=== PATIENT | female | born 1980 | race Caucasian/White ===

== ENCOUNTER 2016-08-05 08:42 | Emergency (ER) | payer BC ==
[~2016-08-05] VITALS: Ht 157.5 cm; Wt 64.0 kg
[~2016-08-05 08:42] MED LIST: DULO20 PO
[2016-08-05 08:46] VITALS: BP 107/77; PULSE 92; RESP 16; TEMP 98.1; O2SAT 98
[2016-08-05 08:59] LABS: BLOOD, URINE NEG (NEG); GLUCOSE,URINE NEG (NEG); KETONE, URINE NEG (NEG); NITRITE,URINE NEG (NEG)
[2016-08-05 09:08] LABS: COMMENT (UR) CULT NOT INDICATED; CULTURE IF INDICATED CULT NOT INDICATED; METHOD OF COLLECTION CLEAN CATCH; RBC, URINE 0-3 /hpf (0-3); SQUAMOUS EPITHELIAL CELL URINE > 8 /hpf (0-5); URINE COLOR YELLOW (YELLW/STRAW)
[2016-08-05] MEDS ORDERED: KETOROLAC TROMETHAMINE 30 MG/ML (IVP) VIAL IV PUSH ONE (09:30)
[2016-08-05] MEDS ORDERED: ONDANSETRON HCL 4 MG/2 ML VIAL IV PUSH ONE (09:30)
[2016-08-05] MEDS ORDERED: SODIUM CHLORIDE 0.9% FLUSH 5 ML FLUSH IVF PRN (09:30)
[2016-08-05 09:36] VITALS: O2SAT 98
[2016-08-05 09:52] LABS: AUTOMATED NEUTROPHIL # 4.8 TH/MM3 (1.8-7.7); BASOPHIL # 0.1 TH/MM3 (0-0.2); BASOPHIL % 1.2 % (0.0-2.0); EOSINOPHIL # 0.2 TH/MM3 (0-0.4); EOSINOPHIL % 2.5 % (0.0-4.0); HEMATOCRIT 43.4 % (35.0-46.0); HEMO FLAGS DIFF FINAL; LYMPH % 31.5 % (9.0-44.0); LYMPHOCYTE # 2.5 TH/MM3 (1.0-4.8); MEAN CELL VOLUME 94.7 FL (80.0-100.0); MEAN CORPUSCULAR HEMOGLOBIN 31.4 PG (27.0-34.0); MEAN CORPUSCULAR HGB CONC 33.1 % (32.0-36.0); MONO % 4.3 % (0.0-8.0); NEUT % 60.5 % (16.0-70.0); PLATELET COUNT 223 TH/MM3 (150-450); RED BLOOD COUNT 4.58 MIL/MM3 (4.00-5.30); RED CELL DISTRIBUTION WIDTH 13.7 % (11.6-17.2); WHITE BLOOD COUNT 7.9 TH/MM3 (4.0-11.0)
[2016-08-05] MEDS ORDERED: IOHEXOL 350 MG/ML 10 ML VIAL (for RAD DIAG) IV ONE (09:57)
[2016-08-05 09:58] LABS: BICARBONATE 27.5 MEQ/L (21.0-32.0)
[2016-08-05 10:01] LABS: APTT (PATIENT) 29.3 SEC (24.3-30.1); PROTHROMBIN TIME - PATIENT 10.6 SEC (9.8-11.6)
--- NOTE | 2016-08-05 10:17 | PD ---
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 Pt states it has been constant, from RLQ to right groin region. Denies any fever, chest pain, sob, n/v, urinary complaints, vaginal bleeding or discharge. Pt states she has been having this pain for 3 months intermittently and her PMD thinks it may be scar tissue from surgery. PFSH Past Medical History Arthritis: No Asthma: Yes Blood Disorders: No Anxiety: No Depression: Yes Cancer: No Cardiovascular Problems: No Diabetes: No Diminished Hearing: No Endocrine: No Gastrointestinal Disorders: No Genitourinary: Yes (PYELONEPHRITIS) Headaches: Yes Immune Disorder: No Musculoskeletal: Yes Psychiatric: No Reproductive: No Respiratory: Yes Migraines: Yes Thyroid Disease: No Tetanus Vaccination: Unknown Influenza Vaccination: No ?: Not LMP: NOVASURE Tubal Ligation: Yes Past Surgical History Other Surgery: No Social History Alcohol Use: Yes ("OCCASIONALLY") Tobacco Use: Yes (1/2 ppd) Substance Use: No Allergies-Medications (Allergen,Severity, Reaction): Coded Allergies: Penicillin (Verified Allergy, Unknown, NOT SURE, 08/05/16) Reported Meds & Prescriptions Reported Meds & Active Scripts Active No Active Prescriptions or Reported Medications Review of Systems Except as stated in HPI: all other systems reviewed are Neg Physical Exam Narrative GENERAL: 36yo F in mild distress. SKIN: Warm and dry. HEAD: Atraumatic. Normocephalic. CARDIOVASCULAR: Regular rate and rhythm. No murmur appreciated. RESPIRATORY: No accessory muscle use. Clear to auscultation. Breath sounds equal bilaterally. GASTROINTESTINAL: Abdomen soft,mild RLQ ttp. No rebound tenderness or guarding. PELVIC: White physiologic discharge. No CMT or adnexal tenderness bilaterally. MUSCULOSKELETAL: No obvious deformities. No clubbing. No cyanosis. No edema. NEUROLOGICAL: Awake and alert. No obvious cranial nerve deficits. Motor grossly within normal limits. Normal speech. PSYCHIATRIC: Appropriate mood and affect; insight and judgment normal.38 Data Data Last Documented VS Vital Signs Date Time Temp Pulse Resp B/P Pulse Ox O2 Delivery O2 Flow Rate FiO2 08/05/16 09:36 98 08/05/16 09:18 16 08/05/16 08:46 98.1 92 107/77 Orders Urinalysis - C+S If Indicated (08/05/16 08:50) Basic Metabolic Panel (Bmp) (08/05/16 09:20) Complete Blood Count With Diff (08/05/16 09:20) Lipase (08/05/16 09:20) Prothrombin Time / Inr (Pt) (08/05/16 09:20) Act Partial Throm Time (Ptt) (08/05/16 09:20) Ct Abd/Pel W Iv Contrast(Rout) (08/05/16 09:20) Iv Access Insert/Monitor (08/05/16 09:20) Ecg Monitoring (08/05/16 09:20) Oximetry (08/05/16 09:20) Sodium Chloride 0.9% Flush (Ns Flush) (08/05/16 09:30) Ketorolac Inj (Toradol Inj) (08/05/16 09:30) Ondansetron Inj (Zofran Inj) (08/05/16 09:30) Gc And Chlamydia Pcr (08/05/16 09:27) Wet Prep Profile (08/05/16 09:27) Iohexol 350 Inj (Omnipaque 350 Inj) (08/05/16 09:57) Labs Laboratory Tests Test 08/05/16 08/05/16 08/05/16 08:50 09:15 09:36 Urine Collection Type CLEAN CATCH Urine Color YELLOW Urine Turbidity CLEAR Urine pH 6.0 Urine Specific [place] 1.007 Urine Protein NEG mg/dL Urine Glucose (UA) NEG mg/dL Urine Ketones NEG mg/dL Urine Occult Blood NEG Urine Nitrite NEG Urine Bilirubin NEG Urine Leukocyte Esterase NEG Urine RBC 0-3 /hpf Urine Squamous Epithelial > 8 /hpf Cells Microscopic Urinalysis Comment CULT NOT INDICATED Urine Collection Time 08:50 Clue Cells (Wet Prep) NONE SEEN Vaginal Trichomonas (Wet Prep) NONE SEEN Vaginal Yeast (Wet Prep) NONE SEEN White Blood Count 7.9 TH/MM3 Red Blood Count 4.58 MIL/MM3 Hemoglobin 14.4 GM/DL Hematocrit 43.4 % Mean Corpuscular Volume 94.7 FL Mean Corpuscular Hemoglobin 31.4 PG Mean Corpuscular Hemoglobin 33.1 % Concent Red Cell Distribution Width 13.7 % Platelet Count 223 TH/MM3 Mean Platelet Volume 9.0 FL Neutrophils (%) (Auto) 60.5 % Lymphocytes (%) (Auto) 31.5 % Monocytes (%) (Auto) 4.3 % Eosinophils (%) (Auto) 2.5 % Basophils (%) (Auto) 1.2 % Neutrophils # (Auto) 4.8 TH/MM3 Lymphocytes # (Auto) 2.5 TH/MM3 Monocytes # (Auto) 0.3 TH/MM3 Eosinophils # (Auto) 0.2 TH/MM3 Basophils # (Auto) 0.1 TH/MM3 CBC Comment DIFF FINAL Differential Comment Prothrombin Time 10.6 SEC Prothromb Time International 1.0 RATIO Ratio Activated Partial 29.3 SEC Thromboplast Time Sodium Level 142 MEQ/L Potassium Level 4.0 MEQ/L Chloride Level 107 MEQ/L Carbon Dioxide Level 27.5 MEQ/L Anion Gap 8 MEQ/L Blood Urea Nitrogen 12 MG/DL Creatinine 0.70 MG/DL Estimat Glomerular Filtration 94 ML/MIN Rate Random Glucose 102 MG/DL Calcium Level 8.9 MG/DL Lipase 106 U/L [facility] Medical Decision Making Medical Screen Exam Complete: Yes Emergency Medical Condition: Yes Interpretation(s) Laboratory Tests Test 08/05/16 08/05/16 08/05/16 08:50 09:15 09:36 Urine Collection Type CLEAN CATCH Urine Color YELLOW (YELLW/STRAW) Urine Turbidity CLEAR (CLEAR) Urine pH 6.0 (5.0-8.5) Urine Specific [place] 1.007 (1.002-1.035) Urine Protein NEG mg/dL (NEG-TRACE) Urine Glucose (UA) NEG mg/dL (NEG) Urine Ketones NEG mg/dL (NEG) Urine Occult Blood NEG (NEG) Urine Nitrite NEG (NEG) Urine Bilirubin NEG (NEG) Urine Leukocyte Esterase NEG (NEG) Urine RBC 0-3 /hpf (0-3) Urine Squamous Epithelial > 8 /hpf (0-5) Cells Microscopic Urinalysis Comment CULT NOT INDICATED Urine Collection Time 08:50 Clue Cells (Wet Prep) NONE SEEN (NONE) Vaginal Trichomonas (Wet Prep) NONE SEEN (NONE) Vaginal Yeast (Wet Prep) NONE SEEN (NONE) White Blood Count 7.9 TH/MM3 (4.0-11.0) Red Blood Count 4.58 MIL/MM3 (4.00-5.30) Hemoglobin 14.4 GM/DL (11.6-15.3) Hematocrit 43.4 % (35.0-46.0) Mean Corpuscular Volume 94.7 FL (80.0-100.0) Mean Corpuscular Hemoglobin 31.4 PG (27.0-34.0) Mean Corpuscular Hemoglobin 33.1 % Concent (32.0-36.0) Red Cell Distribution Width 13.7 % (11.6-17.2) Platelet Count 223 TH/MM3 (150-450) Mean Platelet Volume 9.0 FL (7.0-11.0) Neutrophils (%) (Auto) 60.5 % (16.0-70.0) Lymphocytes (%) (Auto) 31.5 % (9.0-44.0) Monocytes (%) (Auto) 4.3 % (0.0-8.0) Eosinophils (%) (Auto) 2.5 % (0.0-4.0) Basophils (%) (Auto) 1.2 % (0.0-2.0) Neutrophils # (Auto) 4.8 TH/MM3 (1.8-7.7) Lymphocytes # (Auto) 2.5 TH/MM3 (1.0-4.8) Monocytes # (Auto) 0.3 TH/MM3 (0-0.9) Eosinophils # (Auto) 0.2 TH/MM3 (0-0.4) Basophils # (Auto) 0.1 TH/MM3 (0-0.2) CBC Comment DIFF FINAL Differential Comment Prothrombin Time 10.6 SEC (9.8-11.6) Prothromb Time International 1.0 RATIO Ratio Activated Partial 29.3 SEC Thromboplast Time (24.3-30.1) Sodium Level 142 MEQ/L (136-145) Potassium Level 4.0 MEQ/L (3.5-5.1) Chloride Level 107 MEQ/L (98-107) Carbon Dioxide Level 27.5 MEQ/L (21.0-32.0) Anion Gap 8 MEQ/L (5-15) Blood Urea Nitrogen 12 MG/DL (7-18) Creatinine 0.70 MG/DL (0.50-1.00) Estimat Glomerular Filtration 94 ML/MIN (>89) Rate Random Glucose 102 MG/DL (74-106) Calcium Level 8.9 MG/DL (8.5-10.1) Lipase 106 U/L (73-393) Differential Diagnosis Appendicitis vs. ovarian cyst vs. UTI vs. nephrolithiasis Narrative Course 36yo well appearing female with 3 sides of right sided pelvic/lower abd pain. Labs reviewed, no leukocytosis. BMP unremarkable. Lipase normal. UA negative. Wet prep negative. Pt given toradol with complete resolution of pain. CTa/p showed no appendicitis. There are cystic areas in both adnexal region as well as uterus. No free fluid. Pt is not in any pain and wants to go home. Informed pt of test result and she states she will follow up with her PMD. Will also give information for out [employer] in case she wants to follow up with them. Return precautions given. Diagnosis Primary Impression: Pelvic pain Patient Instructions: General Instructions Departure Forms: Tests/Procedures Additional Instructions: Please follow up with your PMD or [employer] in 1-2 days. Return to the ED if symptoms return or worsen. Med/Other Pt SpecificInfo: Prescription(s) given Scripts Ibuprofen 600 Mg Haz687 Mg PO Q8HR PRN (PAIN) #20 TAB Ref 0 Prov:Marielle Chatterjee DO 08/05/16 Disposition: 01 DISCHARGE HOME Condition: Stable Marielle Chattejree DO Aug 05, 2016 10:16
--- NOTE | 2016-08-05 10:39 | RADHPO ---
EXAM DATE/TIME: 08/05/2016 09:48 [place] COMPARISON: No previous studies available for comparison. INDICATIONS: Right lower quadrant pain. Right inguinal pain. IV CONTRAST: 85 cc Omnipaque 350 (iohexol) IV ORAL CONTRAST: No oral contrast ingested. RADIATION DOSE: 6.57 CTDIvol (mGy) MEDICAL HISTORY: Asthma. SURGICAL HISTORY: Tubal ligation. ENCOUNTER: Initial ACUITY: 3 days PAIN SCALE: 6/10 LOCATION: Right lower quadrant TECHNIQUE: Volumetric scanning of the abdomen and pelvis was performed. Using automated exposure control and ad justment of the mA and/or kV according to patient size, radiation dose was kept as low as reasonably achievable to obtain optimal diagnostic quality images. FINDINGS: Lung bases are clear. Liver, spleen, pancreas, adrenals and kidneys are unremarkable. There is no ascites or adenopathy. Cystic areas are seen in both adnexal regions as well as the uterus. There is no free fluid. I do not see an appendicitis. CONCLUSION: Abnormal uterus an adnexa probably the source of pelvic pain. I do not see evidence for an appendici tis. Taurus Taylor MD FACR on August 05, 2016 at 10:13 Board Certified Radiologist. This report was verified electronically.
[2016-08-05] MEDS ORDERED: IBUP-232 PO (11:16)
[2016-08-05 11:23] VITALS: BP 97/66
[2016-08-05 11:24] VITALS: RESP 18
[2016-08-05 15:16] LABS: CHLAMYDIA PCR NOT DETECTED (NOT DETECT); NEISSERIA PCR NOT DETECTED (NOT DETECT)
== END 2016-08-05 11:24 | disposition home or self-care (01) ==
LOC: PHED 08:42
DX: R10.2 Pelvic and perineal pain (principal); J45.909 Unspecified asthma, uncomplicated; F17.210 Nicotine dependence, cigarettes, uncomplicated
CPT/HCPCS: 74177; 80048; 81001; 83690; 85025; 85610; 85730; 87210; 87491; 87591; 96374; 96375; 99284; J1885; J2405; Q9967

== ENCOUNTER 2016-08-12 23:35 | Emergency (ER) | payer BC ==
[~2016-08-12] VITALS: Ht 157.5 cm; Wt 66.0 kg
[~2016-08-12 23:35] MED LIST changes: -DULO20 PO; +IBUP-232 PO
[2016-08-12 23:51] VITALS: BP 106/76; PULSE 107; RESP 16; TEMP 98.7; O2SAT 100
[2016-08-13 00:03] VITALS: BP 106/76; PULSE 96; RESP 18; TEMP 98.7; O2SAT 100
[2016-08-13 01:15] VITALS: BP 112/72; PULSE 74; RESP 18; O2SAT 99
== END 2016-08-13 01:24 | disposition left against medical advice (07) ==
LOC: PHED 23:35
DX: R10.30 Lower abdominal pain, unspecified (principal)
CPT/HCPCS: 99281

== ENCOUNTER → 2017-07-24 | Outpatient (CLI) | payer BC ==
[~2017-07-24] MED LIST changes: +ALPR.5 PO; +AMIT10TA6 PO
[2017-07-24 12:10] LABS: HEMATOCRIT 44.7 % (35.0-46.0); HEMOGLOBIN 14.7 GM/DL (11.6-15.3); MEAN CORPUSCULAR HGB CONC 32.9 % (32.0-36.0); MEAN PLATELET VOLUME 8.5 FL (7.0-11.0); PLATELET COUNT 243 TH/MM3 (150-450); RED BLOOD COUNT 4.76 MIL/MM3 (4.00-5.30); RED CELL DISTRIBUTION WIDTH 12.9 % (11.6-17.2); WHITE BLOOD COUNT 6.7 TH/MM3 (4.0-11.0)
[2017-07-24 12:35] LABS: BILIRUBIN, URINE NEG (NEG); BLOOD, URINE NEG (NEG); GLUCOSE,URINE NEG (NEG); KETONE, URINE NEG (NEG); NITRITE,URINE NEG (NEG); URINE LEUKOCYTE ESTERASE NEG (NEG)
[2017-07-24 12:41] LABS: SQUAMOUS EPITHELIAL CELL URINE 0-2 /hpf (0-5); URINE COLOR STRAW (YELLW/STRAW)
== END ==
LOC: PHPRE 11:18
PROVIDERS: ATTEND Obstetrics & Gynecology
DX: Z01.812 Encounter for preprocedural laboratory examination (principal); R10.2 Pelvic and perineal pain; N94.19 Other specified dyspareunia; N73.8 Other specified female pelvic inflammatory diseases
CPT/HCPCS: 36415; 81001; 85027; 86850; 86900; 86901; 86920

== ENCOUNTER → 2017-07-26 | Day surgery (SDC) | payer BC ==
[~2017-07-26] VITALS: Ht 157.5 cm; Wt 65.5 kg
[~2017-07-26] MED LIST changes: +ACETAMINOPHEN 1000 MG/100 ML 100 ML IV ONE; +CHLORHEXIDINE GLUCONATE 2 % 1 PACK (2 CLOTHS) TOPICAL PRN; +CLINDAMYCIN 600 MG/DEX PREMIX 50 ML ONE; +CLINDAMYCIN 600 MG/NS PREMIX 50 ML IV PRN; +ESTROGENS CONJUGATED VAG CREA 15 APPL/30 GM TUBE ONE; +FAMOTIDINE 20 MG/2 ML VIAL ONE; +GENTAMICIN INJ 100 MG in SODIUM CHLORIDE 0.9% INJ 100 ML IV PRN; -IBUP-232 PO; +KETOROLAC TROMETHAMINE 30 MG/ML (IVP) VIAL ONE; +LACTATED RINGER'S 1000 ML INJ 1,000 ML IV ONE; +LACTATED RINGER'S 1000 ML IV PRN; +MEPERIDINE HCL 25 MG/ML VIAL ONE; +METOPROLOL TARTRATE 25 MG TAB PO PRN; +MIDAZOLAM HCL 2 MG/2 ML VIAL ONE; +MORPHINE SULFATE 2 MG/ML INJ ONE; +MORPHINE SULFATE 8 MG/ML INJ ONE; +POVIDONE IODINE 5% (ANTISEPSIS KIT) 4 APPLICATIONS EACH NARE PRN; +PROMETHAZINE INJ 25 MG/ML VIAL ONE; +RESP: ALBUTEROL CONC 2.5 MG/0.5 ML NEB ONE; +SODIUM CHLORID 0.9% 500 ML IV PRN; +SODIUM CHLORIDE 0.9% 20 ML VIAL ONE; +VASOPRESSIN 20 UNITS/ML VIAL (IVTITR) ONE; +fentaNYL CITRATE 250 MCG/5 ML AMP ONE; +oxyCODONE/ACETAMINOPHEN 5 MG/325 MG TAB ONE
[2017-07-26 14:10] VITALS: PULSE 70
[2017-07-26 16:30] VITALS: BP 110/60; PULSE 89; RESP 16; TEMP 97.9; O2SAT 99
--- NOTE | 2017-07-31 09:58 | PD.OP ---
Operative Report Date of Surgery: Jul 26, 2017 Preoperative Diagnosis: (1) Chronic PID (chronic pelvic inflammatory disease) (2) Deep dyspareunia (3) Pelvic pain Postoperative Diagnosis: (1) Pelvic pain (2) Deep dyspareunia Procedure: laparoscopic-assisted vaginal hysterectomy and bilateral salpingectomy Anesthesia: WENDY Starkey Surgeon: Jayna Hines Budget Report Clerk(s): Axel Corrales Resident Surgeon: n/a Operation and Findings: Indications: [This 37 y/o multipara has had endometrial ablation , LEEP and diagnosis of LEEP in the past. After considering her options, she elects vaginal hysterectomy, laparoscopic assistance for bilateral salpingectomy, and conserving the ovaries if possible. She hjopes to resolve her deep dyspareunia and pelvic pain.-] Findings: [The uterus was normal size and shape. The tubes were swollen and mildly clubbed bilaterally. There was little other evidence of chronic PID. The ovaries appeared normal.-] Procedure: The patient was taken to the operating room and general anesthesia was administered with intubation. The patient was then positioned in low stirrups, and after prep and drape a Harris catheter was placed. An open-sided speculum was placed and the anterior lip of the cervix was grasped with a tenaculum and the HUMI was placed in the uterus. The 5mm trocar was placed in the umbilicus after insufflation with a Veress needle. Then under direct visualization and using transillumination to avoid major blood vessels, 5mm ports were placed in the right and left lower quadrants. The scope was used with a grasper to note the findings described above. Then using the Harmonic scalpel, the round ligaments were divided, The incision was extended anteriorly from side to side and bladder flap was created. The tubes were from the ovaries, again with the harmonic, and then transected at the uterus and withdrawn from the pelvis as specimen. The broad ligaments were then divided with harmonic scalpel starting at the utero-ovarian ligament, proceeding down to the junction of the cervix and the uterus. Then we converted to vaginal approach. Dilute vasopressin was injected around the cervix and a circumferential incision was made. The posterior cul-de-sac was entered sharply, and the rectum was held out of the field by a long weighted speculum. The uterosacral ligaments were clamped, pedicles cut and Norma suture-ligatures placed bilaterall. Two bites more on each side was required before the juncture of the cauterized pedicles of the broad ligament from above were met. Care was then taken to check each pedicle, the ovaries and to irrigate out any remaining clots and debris. The ties from the uterosacral and cardinal ligaments were utilized to suspend the vaginal cuff by using a free needle to attach the apex. The ties were tied at the right and left sides at the vaginal angles, also assisting in hemostasis. The remaining ties were tied across the cuff to their contralateral partners. The cuff was then closed in running locked fashion. 0 Vicryl was used throughout thhis portion of the procedure. The case being complete the ports were removed, and the umbilical incision and side port sites were closed. 4-0 Monocryl was used subcuticularly on the skin edges, followed by sealing with Dermabond. The patient was awakened and taken to the recovery room awake and breathing on her own. She tolerated the procedure well. Sponge, needle and instrument counts were correct. Jayna Hines MD Jul 31, 2017 09:58
== END | disposition home or self-care (01) ==
LOC: PHSDC 07:15
PROVIDERS: ATTEND Obstetrics & Gynecology
DX: N73.1 Chronic parametritis and pelvic cellulitis (principal); N70.11 Chronic salpingitis; N94.12 Deep dyspareunia
CPT/HCPCS: 00840; 36415; 58552; 81001; 85027; 86850; 86900; 86901; 86920; 88307; J0131; J1580; J1885; J2175; J2250; J2270; J2550; J3010; J7120; J7611